=== PATIENT | female | born 1945 | race Caucasian/White ===

== ENCOUNTER 2021-08-26 04:00 | Emergency (ER) | payer MEDICARE ==
[~2021-08-26] VITALS: Ht 165.1 cm; Wt 63.5 kg
[2021-08-26 04:05] VITALS: BP 132/108
--- NOTE | 2021-08-26 04:10 | NUR ---
76 Y/O FEMALE BIBA FROM HOME WITH C/O HYPOGLYCEMIA OF 26, PER EMS FOUND PT LAYING ON BEDROOM FLOOR. PT WAS GIVEN GLUCAGON 1MG IM BY EMS. NO INJURIES NOTED. UPON ARIVAL TO ED BLOOD GLUCOSE 66. PT GIVEN APPLE JUICE AND PUDDING. DENIES N/V/D; SKIN IS PINK/WARM/DRY; AAOX4 WITH EVEN AND STEADY GAIT; HR EVEN AND REGULAR; PT DENIES ANY FEVER, CP, SOB, OR COUGH AT THIS TIME; VSS; PATIENT POSITIONED FOR COMFORT; HOB ELEVATED; BEDRAILS UP X2; BED DOWN. ER MD MADE AWARE OF PT STATUS. PMH: HTN, DM, CHF, RENAL FAILURE, MT NKDA Addendum: 08/26/21 at 0708 by [email or web address] Amendment undone in EDM - 08/26/21 at 0722 by [email or web address] PT HAS A FISTULA TO R ARM. REPORTS IT WAS PLACED X5 YEARS AGO BUT NEVER USED. DENIES KIDNEY DISEASE/PROBLEMS.
--- NOTE | 2021-08-26 04:12 | NUR ---
PT BROUGHT TO BED 4 VIA [facility]
--- NOTE | 2021-08-26 04:15 | NUR ---
PT HAS A FISTULA TO L ARM. REPORTS IT WAS PLACED X5 YEARS AGO BUT NEVER USED. DENIES KIDNEY DISEASE/PROBLEMS.
[2021-08-26] MEDS ORDERED: NACL 0.9% 1,000 ML IV ONE (05:10)
--- NOTE | 2021-08-26 05:17 | NUR ---
PT AT BEDSIDE. PER PT WAS FOUND ON FLOOR MOANING, AWAKE, EYES OPEN BUT NO VERBAL RESPONSE, UNSURE IF PT HIT HEAD. BUBBA SEGURA MADE AWARE. PT AOX4, GCS 15, NO SIGNS OF HEAD TRAUMA, NO HEADACHE, PERRL.
[2021-08-26 05:34] LABS: BASOPHILS # (AUTO) 0.1 K/uL (0.00-0.22); BASOPHILS % (AUTO) 0.4 % (0.0-2.0); EOSINOPHILS # (AUTO) 0.4 K/uL (0-0.4); EOSINOPHILS % (AUTO) 1.9 % (0.0-4.0); HEMATOCRIT 40.1 % (36-48); HEMOGLOBIN 12.4 g/dL (12.0-16.0); LYMPHOCYTES # (AUTO) 0.7 K/uL (2.5-16.5); LYMPHOCYTES % (AUTO) 2.9 % (20.5-51.1); MEAN CORPUSCULAR HEMOGLOBIN 29 pg (27-31); MEAN CORPUSCULAR HGB CONC 31 g/dL (33-37); MEAN CORPUSCULAR VOLUME 93.3 fL (80-94); MONOCYTES % (AUTO) 4.4 % (1.7-9.3); NEUTROPHILS # (AUTO) 21.1 K/uL (1.8-7.7); NEUTROPHILS % (AUTO) 90.4 % (42.2-75.2); PLATELET COUNT (AUTO) 307 K/uL (140-450); RED CELL DISTRIBUTION WIDTH 18.1 % (11.6-13.7); WHITE BLOOD COUNT (AUTO) 23.4 K/uL (4.8-10.8)
[2021-08-26 05:50] LABS: ANION GAP 14.2 (8-16); CARBON DIOXIDE 22.2 mmol/L (21-32); CHLORIDE 109 mmol/L (98-107); CREATININE 2.6 mg/dL (0.6-1.3); GLUCOSE 160 mg/dL (74-106); POTASSIUM 3.4 mmol/L (3.5-5.1); SODIUM SERUM 142 mmol/L (136-145); UREA NITROGEN, BLOOD 58 mg/dL (7-18)
[2021-08-26] MEDS ORDERED: CIPR500T4 PO (06:15)
[2021-08-26] MEDS ORDERED: HYDROcodone/APAP 5/325 MG 1 TAB TAB PO ONE (06:45)
--- NOTE | 2021-08-26 07:24 | NUR ---
REPORT GIVEN TO NLISA. TRANSFER OF CARE AT THIS TIME
--- NOTE | 2021-08-26 07:26 | NUR ---
RECEIVED REPORT FROM PATIENT SERVICE ASSOCIATE NURSE FOR CONTINUOUS OF CARE.
--- NOTE | 2021-08-26 08:40 | NUR ---
Patient discharged with v/s stable. Written and verbal after care instructions given and explained. Patient alert, oriented and verbalized understanding of instructions. Wheel Chair Assisted with . All questions addressed prior to discharge. ID band removed. Patient advised to follow up with PMD. Rx OF CIPROFLOXACIN given. Patient educated on indication of medication including possible reaction and side effects. Opportunity to ask questions provided and answered.
[2021-08-26 08:42] VITALS: BP 120/52
== END 2021-08-26 08:40 | disposition home or self-care (01) ==
LOC: MED 04:00
DX: E11.649 Type 2 diabetes mellitus with hypoglycemia without coma (principal); R19.7 Diarrhea, unspecified; Z87.448 Personal history of other diseases of urinary system
CPT/HCPCS: 36415; 80048; 82948; 85025; 96360; 96361; 99283; J7030